=== PATIENT | female | born 1965 | race Two or more races ===

== ENCOUNTER 2019-11-11 12:16 | Emergency (ER) | payer OTHER ==
[~2019-11-11] VITALS: Ht 162.6 cm; Wt 68.0 kg
[2019-11-11 13:42] LABS: BILIRUBIN,URINE NEGATIVE (NEG); CLARITY,URINE CLEAR; COLOR,URINE YELLOW; NITRITE,URINE NEGATIVE (NEG); PH,URINE 5.5 (<5.0-8.0); PROTEIN,URINE NEGATIVE (NEG-TRACE); UROBILINOGEN,URINE 0.2 mg/dL (0.2 mg/dL)
[2019-11-11 13:51] LABS: BACTERIA,URINE 0 /HPF (0-FEW); RBC,URINE 0 /HPF (0-2); SQUAMOUS EPITHELIAL CELL,UR FEW /LPF; WBC,URINE OCC /HPF (0-4)
[2019-11-11 14:27] VITALS: BP 118/56
[2019-11-11] MEDS ORDERED: IV NORMAL SALINE 1000ML BAG 1,000 ML IV ONE (16:00)
[2019-11-11 16:29] LABS: BASO % 1 % (0-3); EOS # 0.1 x10^3/uL (0.0-0.7); EOS % 3 % (0-3); HEMATOCRIT 40.4 % (36.0-47.0); HEMOGLOBIN 13.8 g/dL (12.0-15.5); LYMPH # 2.5 x10^3/uL (1.0-4.8); LYMPH % 55 % (24-48); MEAN CORPUSCULAR HEMOGLOBIN 29 pg (25-35); MEAN CORPUSCULAR HGB CONC 34 g/dL (31-37); MEAN CORPUSCULAR VOLUME 85 fL (79-100); MONO # 0.3 x10^3/uL (0.0-1.1); MONO % 6 % (0-9); NEUT # 1.6 x10^3/uL (1.8-7.7); NEUT % 36 % (31-73); PLATELET COUNT 277 x10^3/uL (140-400); RED BLOOD COUNT 4.76 x10^6/uL (3.50-5.40); RED CELL DISTRIBUTION WIDTH 14.2 % (11.5-14.5); WHITE BLOOD COUNT 4.5 x10^3/uL (4.0-11.0)
[2019-11-11 16:37] LABS: CALCIUM 9.1 mg/dL (8.5-10.1); CREATININE 0.6 mg/dL (0.6-1.0); GFR 103.8; POTASSIUM 3.9 mmol/L (3.5-5.1)
[2019-11-11 16:45] LABS: ALBUMIN 3.7 g/dL (3.4-5.0); ALBUMIN/GLOBULIN RATIO 1.1 (1.0-1.7); MAGNESIUM 2.1 mg/dL (1.8-2.4)
[2019-11-11] MEDS ORDERED: IOHEXOL 300 MG/ML 100ML VIAL. IV ONE (16:45)
[2019-11-11] MEDS ORDERED: CONTRAST GIVEN. MC PRN (16:45)
--- NOTE | 2019-11-11 17:31 | RAD ---
CT scan abdomen and pelvis with contrast 05/13/2019 CLINICAL HISTORY: Diarrhea for 2 weeks. Right flank pain. TECHNIQUE: After the intravenous administration of 75 cc of Omnipaque 300 only, contiguous, 5 mm axial sections were obtained through the abdomen and pelvis. One or more of the following individualized dose reduction techniques were utilized for this study: 1. Automated exposure control. 2. Adjustment of the mA and/or kV according to patient size. 3. Use of iterative reconstruction technique. FINDINGS: Images from the study are degraded by patient motion. Images through the lung bases demonstrate minimal dependent subsegmental atelectasis bilaterally. The liver parenchyma has a decreased attenuation consistent with fatty infiltration. The, pancreas, adrenal glands and left kidney are within normal limits. A 1 cm rounded low-attenuation lesion is seen involving the lower pole of the right kidney. This likely represents a cyst. No further imaging workup is recommended. The abdominal aorta tapers normally. Air and stool are seen throughout the colon. There is no evidence of bowel obstruction. No free fluid or free air is seen within the abdomen. The appendix is well-visualized and is within normal limits. The patient appears to be post cholecystectomy. A small fat-containing umbilical hernia is seen which measures 3.2 cm in size. Images through the pelvis demonstrate the urinary bladder distended with urine. Calcifications are seen within the pelvis consistent phleboliths. No adnexal mass is seen. Very mild S-shaped curvature of the thoracolumbar spine is noted. Degenerative changes are seen involving the lower thoracic and throughout the lumbar spine along with both hips. IMPRESSION: No acute abnormality is seen. Electronically signed by: Blair Otto MD (11/11/2019 5:29 PM) [id number]
--- NOTE | 2019-11-11 18:51 | PHYS DOC ---
Past Medical History Past Medical History: No Pertinent History Past Surgical History: No Surgical History Smoking Status: Never Smoker Alcohol Use: None General Adult EDM: Chief Complaint: URINARY FREQUENCY HPI: HPI: Patient is a 54 year old AA female, accompanied by her daughter, who presents to the emergency department with complaints of right lower back pain, and diarrhea for 2 weeks. Patient states that the back pain does not wrap around to her abdomen. She denies any abdominal pain, nausea, vomiting, constipation, fever, cough, shortness of breath, fatigue, or rash. Patient states that there was blood in her stool yesterday but denies any blood in her stool today. She reports that she was at her doctor last week and was given an unknown liquid that did help to stop her diarrhea but then it returned. She denies any dysuria, hematuria, increased urinary frequency, or radiation of her back pain. She currently rates the back pain a 10 out of 10 on pain scale, she denies any alleviating or exacerbating factors. The patient spoke Swahili and the patient's daughter translated for her. Review of Systems: Review of Systems: Constitutional: Denies fever or chills. [] HENT: Denies nasal congestion or sore throat. [] Respiratory: Denies cough or shortness of breath. [] Cardiovascular: Denies chest pain or edema. [] GI: See HPI : Denies dysuria, hematuria, or increased urinary frequency. [] Musculoskeletal: See HPI Integument: Denies rash. [] Neurologic: Denies headache, focal weakness or sensory changes. [] Psychiatric: Denies depression or anxiety. [] Heart Score: Risk Factors: Risk Factors: DM, Current or recent (<one month) smoker, HTN, HLP, family history of CAD, obesity. Risk Scores: Score 0 - 3: 2.5% MACE over next 6 weeks - Discharge Home Score 4 - 6: 20.3% MACE over next 6 weeks - Admit for Clinical Observation Score 7 - 10: 72.7% MACE over next 6 weeks - Early Invasive Strategies Current Medications: Current Medications Medications (Trade) Dose Ordered Sig/Ellis Start Time Stop Time Status Last Admin Dose Admin Info (CONTRAST GIVEN -- Rx MONITORING) 1 each PRN DAILY PRN 11/11/19 16:45 11/13/19 16:44 Iohexol (Omnipaque 300 Mg/ml) 75 ml 1X ONCE 11/11/19 16:45 11/11/19 16:46 DC 11/11/19 17:00 75 ML Sodium Chloride 1,000 ml @ 1,000 mls/hr 1X ONCE 11/11/19 16:00 11/11/19 16:59 DC 11/11/19 16:24 1,000 MLS/HR Allergies: Allergies: Allergies Coded Allergies Type Severity Reaction Last Updated Verified No Known Drug Allergies 11/11/19 No Physical Exam: PE: Constitutional: Well developed, well nourished, no acute distress, non-toxic appearance. [] HENT: Normocephalic, atraumatic, bilateral external ears normal, moist mucous membranes, nose normal. [] Eyes: PERRLA, EOMI, conjunctiva normal, no discharge. [] Neck: Normal range of motion, no stridor. [] Cardiovascular:Heart rate regular rhythm Lungs & Thorax: Respirations even and unlabored, no retractions, no respiratory distress, lungs CTA Abdomen: soft, no tenderness, no rebound tenderness, no guarding, bowel sounds active in all quadrants Back: No CVA tenderness, no bony tenderness, no paraspinal tenderness Skin: Warm, dry, no erythema, no rash. [] Extremities: No cyanosis, ROM intact, no edema. [] Neurologic: Alert and oriented X 3, no focal deficits noted. [] Psychologic: Affect normal, judgement normal, mood normal. [] Current Patient Data: Labs: Laboratory Tests Test 11/11/19 13:10 11/11/19 16:21 Urine Collection Type Unknown Urine Color Yellow Urine Clarity Clear Urine pH 5.5 (<5.0-8.0) Urine Specific [place] 1.020 (1.000-1.030) Urine Protein Negative mg/dL (NEG-TRACE) Urine Glucose (UA) Negative mg/dL (NEG) Urine Ketones (Stick) Negative mg/dL (NEG) Urine Blood Negative (NEG) Urine Nitrite Negative (NEG) Urine Bilirubin Negative (NEG) Urine Urobilinogen Dipstick 0.2 mg/dL (0.2 mg/dL) Urine Leukocyte Esterase Negative (NEG) Urine RBC 0 /HPF (0-2) Urine WBC Occ /HPF (0-4) Urine Squamous Epithelial Cells Few /LPF Urine Bacteria 0 /HPF (0-FEW) Urine Mucus Mod /LPF White Blood Count 4.5 x10^3/uL (4.0-11.0) Red Blood Count 4.76 x10^6/uL (3.50-5.40) Hemoglobin 13.8 g/dL (12.0-15.5) Hematocrit 40.4 % (36.0-47.0) Mean Corpuscular Volume 85 fL (79-100) Mean Corpuscular Hemoglobin 29 pg (25-35) Mean Corpuscular Hemoglobin Concent 34 g/dL (31-37) Red Cell Distribution Width 14.2 % (11.5-14.5) Platelet Count 277 x10^3/uL (140-400) Neutrophils (%) (Auto) 36 % (31-73) Lymphocytes (%) (Auto) 55 % (24-48) H Monocytes (%) (Auto) 6 % (0-9) Eosinophils (%) (Auto) 3 % (0-3) Basophils (%) (Auto) 1 % (0-3) Neutrophils # (Auto) 1.6 x10^3/uL (1.8-7.7) L Lymphocytes # (Auto) 2.5 x10^3/uL (1.0-4.8) Monocytes # (Auto) 0.3 x10^3/uL (0.0-1.1) Eosinophils # (Auto) 0.1 x10^3/uL (0.0-0.7) Basophils # (Auto) 0.0 x10^3/uL (0.0-0.2) Sodium Level 144 mmol/L (136-145) Potassium Level 3.9 mmol/L (3.5-5.1) Chloride Level 108 mmol/L (98-107) H Carbon Dioxide Level 26 mmol/L (21-32) Anion Gap 10 (6-14) Blood Urea Nitrogen 8 mg/dL (7-20) Creatinine 0.6 mg/dL (0.6-1.0) Estimated GFR (Cockcroft-Gault) 103.8 BUN/Creatinine Ratio 13 (6-20) Glucose Level 71 mg/dL (70-99) Calcium Level 9.1 mg/dL (8.5-10.1) Magnesium Level 2.1 mg/dL (1.8-2.4) Total Bilirubin 1.0 mg/dL (0.2-1.0) Aspartate Amino Transferase (AST) 32 U/L (15-37) Alanine Aminotransferase (ALT) 53 U/L (14-59) Alkaline Phosphatase 81 U/L (46-116) Total Protein 7.0 g/dL (6.4-8.2) Albumin 3.7 g/dL (3.4-5.0) Albumin/Globulin Ratio 1.1 (1.0-1.7) Lipase 75 U/L (73-393) Laboratory Tests 11/11/19 16:21 Laboratory Tests 11/11/19 16:21 Vital Signs: Vital Signs Date Time Temp Pulse Resp B/P (MAP) Pulse Ox O2 Delivery O2 Flow Rate FiO2 11/11/19 14:27 98.1 57 12 118/56 (76) 97 Room Air 98.1 EKG: EKG: [] Radiology/Procedures: Radiology/Procedures: PROCEDURE: CT ABD PELV W/ IV CONTRST ONLY CT scan abdomen and pelvis with contrast 05/13/2019 CLINICAL HISTORY: Diarrhea for 2 weeks. Right flank pain. TECHNIQUE: After the intravenous administration of 75 cc of Omnipaque 300 only, contiguous, 5 mm axial sections were obtained through the abdomen and pelvis. One or more of the following individualized dose reduction techniques were utilized for this study: 1. Automated exposure control. 2. Adjustment of the mA and/or kV according to patient size. 3. Use of iterative reconstruction technique. FINDINGS: Images from the study are degraded by patient motion. Images through the lung bases demonstrate minimal dependent subsegmental atelectasis bilaterally. The liver parenchyma has a decreased attenuation consistent with fatty infiltration. The, pancreas, adrenal glands and left kidney are within normal limits. A 1 cm rounded low-attenuation lesion is seen involving the lower pole of the right kidney. This likely represents a cyst. No further imaging workup is recommended. The abdominal aorta tapers normally. Air and stool are seen throughout the colon. There is no evidence of bowel obstruction. No free fluid or free air is seen within the abdomen. The appendix is well-visualized and is within normal limits. The patient appears to be post cholecystectomy. A small fat-containing umbilical hernia is seen which measures 3.2 cm in size. Images through the pelvis demonstrate the urinary bladder distended with urine. Calcifications are seen within the pelvis consistent phleboliths. No adnexal mass is seen. Very mild S-shaped curvature of the thoracolumbar spine is noted. Degenerative changes are seen involving the lower thoracic and throughout the lumbar spine along with both hips. IMPRESSION: No acute abnormality is seen. [] Course & Med Decision Making: Course & Med Decision Making Pertinent Labs and Imaging studies reviewed. (See chart for details) 54-year-old female presents emergency department with complaints of right low back pain and diarrhea for 2 weeks. Work-up included CT abdomen pelvis with contrast, CBC, CMP, lipase, magnesium, and urinalysis. CT revealed no acute findings. CBC is unremarkable; CMP revealed a chloride of 108 otherwise unremarkable; urinalysis was also unremarkable. The patient was given 1 L of normal saline in the emergency department. She reported feeling better after these IV fluids. Vital signs were stable. I provided the patient with information about a diet for diarrhea. I encouraged increased fluid intake. Follow-up with her primary care doctor in the next 1 to 2 days, return to the ER if symptoms worsen. Patient and her daughter verbalized an understanding of home care, medications, follow-up, and return to ED instructions and were in agreement with the plan of care. [] Dragon Disclaimer: Dragon Disclaimer: This electronic medical record was generated, in whole or in part, using a voice recognition dictation system. Departure Departure Impression: Primary Impression: Diarrhea Qualified Codes: R19.7 - Diarrhea, unspecified Additional Impression: Low back pain Qualified Codes: M54.5 - Low back pain Disposition: 01 HOME, SELF-CARE Condition: STABLE Referrals: NO PCP (PCP) Patient Instructions: Diarrhea, [id number], Diet for Diarrhea, Adult Additional Instructions: Follow the diet instructions provided. Increase clear fluids. Follow-up with your primary care doctor in the next 1-2 days. Return to the emergency room if your symptoms worsen. Justicifation of Admission Dx: Justifications for Admission: Justification of Admission Dx: N/A KEAGAN PORRAS [employer] EX[employer] Nov 11, 2019 18:50
== END 2019-11-11 19:08 | disposition home or self-care (01) ==
LOC: ER 12:16
DX: R19.7 Diarrhea, unspecified (principal); M54.5 Low back pain
CPT/HCPCS: 36415; 74177; 80053; 81001; 83690; 83735; 85025; 96360; 96361; 99285; J7030; Q9967